=== PATIENT | female | born 1980 | race American Indian/Alaskan Native ===

== ENCOUNTER 2023-03-05 18:49 | Emergency (ER) | payer MEDICAID, OTHER, SELFPAY ==
[2023-03-05 18:56] VITALS: BP 152/79; PULSE 83; RESP 14; TEMP 36.8; O2SAT 98; BMI 38.4
[2023-03-05 20:05] LABS: Appearance Urine UA Cloudy; Color Urine UA Orange
[2023-03-05 20:06] LABS: Calcium Oxalate Crystals Urine Moderate; RBC Urine None Seen (0-5/HPF); Renal Epithelial Cells Urine 1-5/HPF (0-1/HPF); Squamous Epithelial Cell Urine 1-5 /HPF (0-5/HPF); WBC Urine 30-100/HPF (0-5/HPF)
[2023-03-05 20:07] LABS: Bacteria Urine Few (2-10); Culture Indicated Urine Specimen Cultured
--- NOTE | 2023-03-05 22:37 | ED.FEMALEGU ---
HPI - Female Genitourinary General Chief complaint: Urogenital-Female Stated complaint: UTI Time Seen by Provider: 03/05/23 20:23 Source: patient Mode of arrival: Ambulatory History of Present Illness HPI Narrative: 42-year-old female nonsmoker with noncontributory chronic medical history presents for evaluation of urinary complaints. She had been seen and evaluated about a week ago and had classic UTI symptoms including frequency, urgency and dysuria. She was put on a 3 day course of antibiotics but admittedly did not take them all in the end stopped. She had a brief improvement but over the past few days has had recurrence of symptoms including some nausea and mild back pain. She denies runny nose, sore throat or cough. She is had no fever or chills Related Data Previous Rx's Medication Instructions Recorded cephalexin 500 mg capsule 500 mg PO BID #14 caps 03/05/23 fluconazole 150 mg tablet 150 mg PO Q3D 2 doses #2 tabs 03/05/23 Allergies Allergy/AdvReac Type Severity Reaction Status Date / Time codeine Allergy Verified 03/05/23 18:55 Review of Systems Review of Systems Narrative: GENERAL: Denies chills, fatigue, malaise, fever, sweats. HEENT: Denies sinus pain, ear pain, sore throat, difficulty swallowing, dizziness. RESPIRATORY: Denies dyspnea, cough, wheezing, hemoptysis, sputum. CARDIOVASCULAR: Denies chest pain, palpitations, orthopnea, edema, GASTROINTESTINAL: Denies nausea, vomiting, abdominal pain, diarrhea, constipation, melena. : See HPI MUSCULOSKELETAL: denies weakness, joint pain, or bony pain SKIN: Denies rash, skin lesions, or other NEUROLOGIC: Denies weakness, headache, numbness, change in speech, confusion, seizures, incoordination. PSYCHIATRIC: No concerning psychosocial issues. 12 point review of systems is negative except for those stated above Patient History tobacco type: cigarettes Substance Use Type: does not use Exam Narrative Exam Narrative: GEN: AOx3 and in mild distress EYES: Pupils are equal, round, and reactive to light and accommodation. Extraoccular muscles are intact bilaterally. There is no subconjunctival hemorrhage or exudate. CHEST: Lungs are clear to auscultation bilaterally and free of wheezes, rales, or rhonchi. Heart rate is regular rhythm, there are no murmurs, clicks, rubs, or gallops. There is no chest wall tenderness. ABD: Abdomen is soft and only minimally tender in the suprapubic region. There is no guarding or rebound. Bowel sounds are normal in all 4 quadrants. There is no mass or organomegaly. BACK: no obvious CVA tenderness EXT: Full painless ROM of all extremities with no loss of sensation or strength. SKIN: Warm, pink, and dry. No erythema or rash Initial Vital Signs Initial Vital Signs: Vital Signs Temperature 98.2 F 03/05/23 18:56 Pulse Rate 83 03/05/23 18:56 Respiratory Rate 14 03/05/23 18:56 Blood Pressure 152/79 H 03/05/23 18:56 Pulse Oximetry 98 03/05/23 18:56 Oxygen Delivery Method Room Air 03/05/23 18:56 Course Orders Ordered: Discontinued Medications Cefazolin Sodium (Cephalexin 250 Mg Cap Prepack) 1 bottle MISC SEEINSTR ONE Stop: 03/05/23 22:39 Last Admin: 03/05/23 23:02 Dose: 500 mg Documented By: SB Vital Signs Vital signs: Vital Signs - 8 hr 03/05/23 18:56 Temperature 98.2 F Pulse Rate 83 Respiratory Rate 14 Blood Pressure 152/79 H Pulse Oximetry 98 Oxygen Delivery Method Room Air MDM - Female Genitourinary Lab Data Labs: Lab Results 03/05/23 Range/Units 19:18 Urine Color [place] Urine Appearance Cloudy Urine pH TNP Ur Specific [place] TNP Urine Protein TNP Urine Glucose (UA) TNP Urine Ketones TNP Urine Occult Blood TNP Urine Nitrate TNP Urine Bilirubin TNP Urine Urobilinogen TNP Ur Leukocyte Esterase TNP Urine RBC None seen (0-5/HPF) Urine WBC 30-100/hpf H (0-5/HPF) Ur Squamous Epith Cells 1-5 /hpf (0-5/HPF) Ur Renal Epithelial Cell 1-5/hpf H (0-1/HPF) Calcium Oxalate Crystal Moderate H Urine Bacteria Few (2-10) H (None) Ur Culture Indicated? Specimen cultured MDM Narrative Medical decision making narrative: [42] year old patient presents with UTI symptoms Multiple etiologies for patient's symptoms considered including, but not limited to: [Cystitis versus pyelonephritis versus other] Prior Charts reviewed in our EMR Primary Historian: patient Labs reviewed and interpreted by myself: Urine suggestive of UTI Patient's symptoms improved over duration of stay with above-stated therapies. She shows no signs of sepsis, discomfort as well controlled, tolerating orals. Appropriate for discharge, return precautions discussed Findings and discharge diagnosis discussed with patient/family followed by verbalization of understanding Return precautions discussed with patient/family whom verbalize understanding of diagnosis and plan Discharge Plan Departure Patient Disposition: Home Clinical Impression: Urinary tract infection Instructions: DI for Urinary Tract Infection (UTI) Activity Restrictions/Additional Instructions: *You have been diagnosed with [urinary tract infection] *What to do: *Please continue to take your regular medications as directed. [x ] New medication prescriptions sent to your pharmacy: [[facility]] [ ] New medication written as a paper prescription [ ] No new medications given *Please follow up with your primary care provider in 2-3 days, call for an appointment. Let them know you were seen in the Emergency Department and that we ask that you be seen in follow up. We will electronically transmit a record of today's note if your PCP is in our system *If you do not have a primary care provider please contact the [facility] Resource line at [phone]. They will ask some questions about your medical history and help get you set up with a doctor in the community. *Return to Emergency Department if you should have any new, worsening or concerning symptoms, such as [fever greater than 101 F, shaking chills, worsening pain, persistent vomiting or other bothersome symptoms] Prescriptions: New fluconazole 150 mg tablet 150 mg PO Q3D Qty: 2 0RF Rx Instructions: may repeat second dose 72 hrs after first dose if symptoms persist cephalexin 500 mg capsule 500 mg PO BID Qty: 14 0RF Stand Alone Forms: Patient Portal/API
[2023-03-05] MEDS: cephALEXin 250 MG CAP PREPACK 1 BOTTLE MISC (23:02)
== END 2023-03-05 23:05 | disposition home or self-care (01) ==
PROVIDERS: Emergency Provider Emergency Medicine
DX: N39.0 Urinary tract infection, site not specified (principal)
CPT/HCPCS: 81001; 87086; 99281; 99282